=== PATIENT | male | born 1990 | race Caucasian/White ===

== ENCOUNTER 2018-10-01 16:32 | Emergency (ER) | payer MEDICAID, SELFPAY ==
[2018-10-01 16:34] VITALS: BP 152/84; PULSE 98; RESP 14; TEMP 36.7; O2SAT 97; BMI 29.5
--- NOTE | 2018-10-01 17:22 | RAD_ITS ---
STUDY: X-RAY - LEFT FOOT CLINICAL: Male, 28 years old. Trauma TECHNIQUE: 3 view(s) of the foot. COMPARISON: None. FINDINGS: There is no evidence of fracture or dislocation. There are no significant degenerative changes. There are no radiodense foreign bodies. RAD/Foot min 3 Views IMPRESSION: No fracture or dislocation. Electronically Signed: Ziggy Esteves, at 17:38 EDT Tel , Service support ,
--- NOTE | 2018-10-01 17:25 | RAD_ITS ---
STUDY: X-RAY - LEFT ANKLE REASON FOR EXAM: Male, 28 years old. Trauma TECHNIQUE: 3 view(s) of the ankle. COMPARISON: None. FINDINGS: There is no evidence of fracture or dislocation. There are no significant degenerative changes. There are no radiodense foreign bodies. RAD/Ankle min 3 Views IMPRESSION: No fracture or dislocation. Electronically Signed: Ziggy Esteves, at 17:38 EDT Tel , Service support ,
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
--- NOTE | 2018-10-01 19:08 | ED.DEP ---
ED Disposition - Plan for ED Patient: Instructions: CONTUSION, Foot Prescriptions: Naproxen [Naprosyn] 500 mg PO BID PRN #20 tablet Referrals: Elia Santizo MD [STAFF PHYSICIAN] -
[2018-10-01 19:27] VITALS: BP 139/78; PULSE 68; RESP 18; O2SAT 100
--- NOTE | 2018-10-01 19:28 | ED.RN ---
THIS NURSE REVIEWED D/C INSTRUCTIONS WITH PT. PT VERBALIZED UNDERSTANDING OF INSTRUCTIONS. PT DENIES FURTHER NEEDS OR QUESTIONS AT THIS TIME. PT AMBULATES FROM ROOM ON OWN WITHOUT ASSISTANCE FROM STAFF
== END 2018-10-01 19:29 | disposition home or self-care (01) ==
PROVIDERS: Emergency Provider Emergency Medicine
DX: S90.32XA Contusion of left foot, initial encounter (principal); Z72.0 Tobacco use; V09.29XA Pedestrian injured in traffic accident involving other motor vehicles, initial encounter; Y93.55 Activity, bike riding; Y92.410 Unspecified street and highway as the place of occurrence of the external cause; Y99.8 Other external cause status
CPT/HCPCS: 73610; 73630; 99283